=== PATIENT | male | born 1970 | race Caucasian/White ===

== ENCOUNTER → 2023-09-15 07:36 | Outpatient (REF) | payer BC, SELFPAY | LOC: RCS 07:36 | PROVIDERS: ATTENDING PHYSICIAN Family Medicine | DX: R07.9 Chest pain, unspecified (principal) | CPT/HCPCS: 93017 ==

== ENCOUNTER → 2024-04-10 15:02 | Outpatient (REF) | payer BC, SELFPAY | LOC: RAD 15:02 | PROVIDERS: ATTENDING PHYSICIAN Physician Assistant; FAMILY PHYSICIAN Family Medicine | DX: R07.89 Other chest pain (principal) | CPT/HCPCS: 71046 ==

== ENCOUNTER → 2024-08-21 06:46 | Outpatient (REF) | payer BC, SELFPAY | LOC: HWRAD 06:46 | PROVIDERS: ATTENDING PHYSICIAN Internal Medicine Gastroenterology; FAMILY PHYSICIAN Family Medicine | DX: K76.89 Other specified diseases of liver (principal) | CPT/HCPCS: 76700 ==

== ENCOUNTER 2024-10-05 06:24 | Day surgery (SDC) | payer BC, SELFPAY | END 2024-10-05 11:39 | disposition home or self-care (01) | LOC: GI 06:24 | PROVIDERS: ATTENDING PHYSICIAN Internal Medicine Gastroenterology | DX: R10.12 Left upper quadrant pain (principal); K92.1 Melena; K22.89 Other specified disease of esophagus; K44.9 Diaphragmatic hernia without obstruction or gangrene; K31.89 Other diseases of stomach and duodenum | CPT/HCPCS: 43239; 88305; 88342 ==

== ENCOUNTER → 2024-10-10 16:33 | Outpatient (REF) | payer BC, SELFPAY | LOC: RAD 16:33 | PROVIDERS: ATTENDING PHYSICIAN Internal Medicine Gastroenterology; FAMILY PHYSICIAN Family Medicine | DX: R10.9 Unspecified abdominal pain (principal) | CPT/HCPCS: 74177; Q9967 ==

== ENCOUNTER 2024-11-06 06:28 | Day surgery (SDC) | payer BC, SELFPAY | END 2024-11-06 12:59 | disposition home or self-care (01) | LOC: GI 06:28 | PROVIDERS: ATTENDING PHYSICIAN Internal Medicine Gastroenterology | DX: K62.5 Hemorrhage of anus and rectum (principal); K64.8 Other hemorrhoids; K57.30 Diverticulosis of large intestine without perforation or abscess without bleeding; D12.2 Benign neoplasm of ascending colon | CPT/HCPCS: 45380; 88305 ==

== ENCOUNTER 2025-03-10 10:21 | Emergency (ER) | payer BC, SELFPAY ==
[2025-03-10] VITALS (8 sets, daily range): BP systolic 131–153; BP diastolic 85–117; BMI 32.8
--- NOTE | 2025-03-10 13:53 | EDRN ---
Pt states he arrives for mid lower back pain radiating to L lower back. Pt states he has been here before for injections that have helped. Pt pain was 7/10 on arrival here and now is 5/10.
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
[2025-03-10] MEDS: LIDOCAINE 4% PATCH 1 PATCH TOPICAL (15:14)
[2025-03-10] MEDS: TORADOL 15 MG IV (15:14)
[2025-03-10 15:16] LABS: Hematocrit 43.9 % (39.0-52.0); Hemoglobin 14.5 g/dL (13.0-18.0); Mean Corp Hgb Conc. 33.0 g/dL (33.0-37.0); Mean Corpuscular Volume 86.8 fL (80.0-94.0); Nucleated Red Blood Cells % 0 % (-); Platelet Count 212 10^3/uL (130-400); Red Cell Dist. Width 13.2 % (11.5-14.5)
[2025-03-10 15:30] LABS: D-Dimer < 0.27 ug/mlFEU (0.00-0.50)
[2025-03-10 15:39] LABS: ALT (SGPT) 19 U/L (0-50); AST (SGOT) 20 U/L (17-59); Albumin 4.5 g/dl (3.5-5.0); Alkaline Phosphatase 71 U/L (38-126); Blood Urea Nitrogen 20 mg/dl (9-20); Calcium 9.8 mg/dl (8.4-10.2); Carbon Dioxide 30 mmol/L (22-30); Estimated Creatinine Clearance > 125 ml/min; Glucose 85 mg/dl (70-99); Total Protein 7.9 g/dl (6.3-8.2); eGFR > 60.00
[2025-03-10 15:52] LABS: Chloride 105 mmol/L (98-107); Potassium 4.4 mmol/L (3.5-5.1); Sodium 139 mmol/L (135-145)
[2025-03-10 15:55] LABS: Troponin I < 0.012 ng/ml
--- NOTE | 2025-03-10 18:10 | EDRN ---
Repeat troponin drawn and sent at this time. ED PCT Mary in room doing repeat EKG.
[2025-03-10 18:52] LABS: Troponin I < 0.012 ng/ml
== END 2025-03-10 19:29 | disposition home or self-care (01) ==
LOC: EMR 10:21
PROVIDERS: Physician Assistant; EMERGENCY PHYSICIAN Emergency Medicine
DX: M54.50 Low back pain, unspecified (principal); G89.29 Other chronic pain; R07.9 Chest pain, unspecified; R03.0 Elevated blood-pressure reading, without diagnosis of hypertension; G57.92 Unspecified mononeuropathy of left lower limb
CPT/HCPCS: 99284; 96374; 71046; 72100; 80053; 84484; 85025; 85379; 93005